=== PATIENT | female | born 1970 | race Caucasian/White ===

== ENCOUNTER 2017-05-07 10:47 | Outpatient (CLI) | payer OTHER ==
[~2017-05-07 10:47] MED LIST: PRENATAL1 TAB PO
== END 2017-05-07 10:54 | disposition home or self-care (01) ==
LOC: MAMO-SONO 10:47
DX: Z12.31 Encounter for screening mammogram for malignant neoplasm of breast (principal); N64.4 Mastodynia

== ENCOUNTER 2017-12-20 13:27 | Outpatient (CLI) | payer OTHER | END 2017-12-20 13:37 | disposition home or self-care (01) | LOC: NUCLEAR 13:27 | DX: M85.89 Other specified disorders of bone density and structure, multiple sites (principal) ==

== ENCOUNTER 2018-05-26 08:14 | Outpatient (CLI) | payer OTHER | END 2018-05-26 08:29 | disposition home or self-care (01) | LOC: MAMO-SONO 08:14 | DX: Z12.31 Encounter for screening mammogram for malignant neoplasm of breast (principal); N83.209 Unspecified ovarian cyst, unspecified side ==

== ENCOUNTER 2018-05-26 09:04 | Outpatient (CLI) | payer OTHER | END 2018-05-26 09:21 | disposition home or self-care (01) | LOC: NUCLEAR 09:04 | DX: M25.50 Pain in unspecified joint (principal) | CPT/HCPCS: 78315; A9503 ==

== ENCOUNTER 2020-01-29 08:13 | Outpatient (CLI) | payer OTHER | END 2020-01-29 08:20 | disposition home or self-care (01) | LOC: LAB 08:13 | PROVIDERS: ATTEND Specialist | DX: D25.1 Intramural leiomyoma of uterus (principal); E03.8 Other specified hypothyroidism; E78.3 Hyperchylomicronemia ==

== ENCOUNTER → 2020-02-14 | Outpatient (CLI) | payer OTHER | END | disposition home or self-care (01) | LOC: MAMO-SONO 01-29 08:45 | PROVIDERS: ATTEND Specialist | DX: N60.11 Diffuse cystic mastopathy of right breast (principal); N60.12 Diffuse cystic mastopathy of left breast; Z12.31 Encounter for screening mammogram for malignant neoplasm of breast ==

== ENCOUNTER 2021-06-19 08:22 | Outpatient (CLI) | payer OTHER | END 2021-06-19 08:24 | disposition home or self-care (01) | LOC: NUCLEAR 08:22 | PROVIDERS: ATTEND Internal Medicine Cardiovascular Disease | DX: M81.0 Age-related osteoporosis without current pathological fracture (principal) ==

== ENCOUNTER 2021-06-19 09:52 | Outpatient (CLI) | payer OTHER | END 2021-06-19 09:59 | disposition home or self-care (01) | LOC: SONOGRAMA 09:52 | PROVIDERS: ATTEND Internal Medicine Cardiovascular Disease | DX: E03.8 Other specified hypothyroidism (principal); E11.9 Type 2 diabetes mellitus without complications ==

== ENCOUNTER 2021-10-24 08:56 | Outpatient (CLI) | payer OTHER | END 2021-10-24 09:11 | disposition home or self-care (01) | LOC: MAMO-SONO 08:56 | PROVIDERS: ATTEND Specialist | DX: Z12.31 Encounter for screening mammogram for malignant neoplasm of breast (principal); N60.11 Diffuse cystic mastopathy of right breast; N60.12 Diffuse cystic mastopathy of left breast ==

== ENCOUNTER 2022-04-23 07:33 | Outpatient (CLI) | payer OTHER | END 2022-04-23 07:35 | disposition home or self-care (01) | LOC: NUCLEAR 07:33 | PROVIDERS: ATTEND Internal Medicine Hematology & Oncology | DX: C21.0 Malignant neoplasm of anus, unspecified (principal) | CPT/HCPCS: 78816; A9552 ==

== ENCOUNTER 2022-10-02 07:30 | Outpatient (CLI) | payer OTHER | END 2022-10-02 07:31 | disposition home or self-care (01) | LOC: NUCLEAR 07:30 | PROVIDERS: ATTEND Internal Medicine Hematology & Oncology | DX: C21.1 Malignant neoplasm of anal canal (principal) ==

== ENCOUNTER 2025-02-28 13:14 | Outpatient (CLI) | payer OTHER | END 2025-02-28 13:19 | disposition home or self-care (01) | LOC: MAMO-SONO 13:14 | PROVIDERS: ATTEND Internal Medicine Hematology & Oncology | DX: N63.0 Unspecified lump in unspecified breast (principal); Z12.31 Encounter for screening mammogram for malignant neoplasm of breast ==

== ENCOUNTER 2025-03-20 07:36 | Outpatient (CLI) | payer OTHER | END 2025-03-20 07:37 | disposition home or self-care (01) | LOC: NUCLEAR 07:36 | PROVIDERS: ATTEND Internal Medicine Hematology & Oncology | DX: C21.0 Malignant neoplasm of anus, unspecified (principal) ==